=== PATIENT | female | born 1995 | race Caucasian/White ===

== ENCOUNTER 2020-10-25 16:40 | Emergency (ER) | payer OTHER ==
--- NOTE | 2020-10-25 16:47 | NUR ---
PT STATES THAT SHE IS REFUSING TO SIGN FRONT ADMITTING PAPERS AND WILL BE LEAVING FACILITY. ERMD AWARE
== END 2020-10-25 16:45 | disposition left against medical advice (07) ==
LOC: MED 16:40
DX: Z53.21 Procedure and treatment not carried out due to patient leaving prior to being seen by health care provider (principal)

== ENCOUNTER 2020-10-29 17:45 | Emergency (ER) | payer OTHER ==
[~2020-10-29] VITALS: Ht 170.2 cm; Wt 52.6 kg
[2020-10-29 17:54] VITALS: BP 104/70
[2020-10-29 18:40] LABS: APPEARANCE,URINE SL CLOUDY (CLEAR); BILIRUBIN,URINE NEGATIVE (NEGATIVE); BLOOD, URINE TRACE-I (NEGATIVE); COLOR,URINE YELLOW (YELLOW); LEUKOCYTE ESTERASE ,URINE 1+ (NEGATIVE); NITRITE, URINE NEGATIVE (NEGATIVE); PH,URINE 6.5 (5.0-9.0); UGLUCOSE NEGATIVE (NEGATIVE)
[2020-10-29 19:00] LABS: BASOPHILS % (AUTO) 0.5 % (0.0-2.0); EOSINOPHILS % (AUTO) 0.6 % (0.0-4.0); HEMATOCRIT 39.8 % (36-48); HEMOGLOBIN 13.5 g/dL (12.0-16.0); LYMPHOCYTES # (AUTO) 2.1 K/uL (2.5-16.5); LYMPHOCYTES % (AUTO) 33.2 % (20.5-51.1); MEAN CORPUSCULAR HEMOGLOBIN 32 pg (27-31); MEAN CORPUSCULAR HGB CONC 34 g/dL (33-37); MEAN CORPUSCULAR VOLUME 92.7 fL (80-94); MONOCYTES # (AUTO) 0.6 K/uL (0.8-1.0); MONOCYTES % (AUTO) 8.9 % (1.7-9.3); NEUTROPHILS # (AUTO) 3.5 K/uL (1.8-7.7); NEUTROPHILS % (AUTO) 56.8 % (42.2-75.2); PLATELET COUNT (AUTO) 215 K/uL (140-450); RED CELL DISTRIBUTION WIDTH 12.5 % (11.6-13.7); WHITE BLOOD COUNT (AUTO) 6.2 K/uL (4.8-10.8)
--- NOTE | 2020-10-29 19:06 | NUR ---
PT AMBULATED TO BED #6
[2020-10-29 19:15] LABS: ALBUMIN 4.2 g/dL (3.4-5.0); ANION GAP 10.7 (8-16); CARBON DIOXIDE 28.8 mmol/L (21-32); CREATININE 0.7 mg/dL (0.6-1.3); POTASSIUM 3.5 mmol/L (3.5-5.1); TOTAL BILIRUBIN 0.7 mg/dL (0.0-1.0)
--- NOTE | 2020-10-29 19:30 | NUR ---
TO BED 6 WITH C/O UTI. WAS SEEN AT [facility] [place] 4 DAYS AGO, GIVEN RX FOR ANTI BIOTICS. HAS NOW DEVELOPED BACK PAIN AND WAS SENT HERE FOR IVAB
[2020-10-29] MEDS ORDERED: CEPH-588 PO (19:43)
[2020-10-29] MEDS ORDERED: cefTRIAXone 1,000 MG VIAL ONE (20:00)
[2020-10-29 20:23] LABS: CALCIUM OXALATE CRYSTALS,UR 0-10 /HPF (None Seen); RBC,URINE 0-5 /HPF (0-5)
[2020-10-29 20:24] LABS: URINE AMORPHOUS URATE 1+ /HPF (None Seen)
[2020-10-29 21:09] VITALS: BP 104/70
--- NOTE | 2020-10-29 21:09 | NUR ---
Patient discharged with v/s stable. IV d/c'd, catheter intact. Written and verbal after care instructions given and explained. Patient verbalized understanding. Ambulatory with steady gait. All questions addressed prior to discharge. Advised to follow up with PMD.
== END 2020-10-29 21:09 | disposition home or self-care (01) ==
LOC: MED 17:45
DX: O23.41 Unspecified infection of urinary tract in pregnancy, first trimester (principal); Z3A.01 Less than 8 weeks gestation of pregnancy; Z88.0 Allergy status to penicillin; Z88.5 Allergy status to narcotic agent; Z88.6 Allergy status to analgesic agent; Z79.899 Other long term (current) drug therapy
CPT/HCPCS: 36415; 80053; 81001; 83605; 85025; 87040; 87086; 99283; J0696

== ENCOUNTER 2021-05-26 15:03 | Observation (INO) | payer OTHER, SELFPAY ==
[~2021-05-26] VITALS: Ht 170.2 cm; Wt 69.9 kg
[~2021-05-26 15:03] MED LIST: CEPH-588 PO
[2021-05-26] MEDS ORDERED: PNV91TAB8 PO (15:46)
[2021-05-26] MEDS ORDERED: LACT1CAP63 PO (15:46)
[2021-05-26] MEDS ORDERED: BETAMETH ACET/BETAMETH NA PH 30 MG/5 ML VIAL IM SCH (15:58)
[2021-05-26 16:40] VITALS: BP 120/74
== END 2021-05-26 17:50 | disposition home or self-care (01) ==
LOC: MLD 15:03
PROVIDERS: ADMIT Obstetrics & Gynecology; ATTEND Obstetrics & Gynecology
DX: O35.8XX0 Maternal care for other (suspected) fetal abnormality and damage, not applicable or unspecified (principal); Z20.822 Contact with and (suspected) exposure to COVID-19; O62.9 Abnormality of forces of labor, unspecified; Z3A.30 30 weeks gestation of pregnancy
CPT/HCPCS: 87426; 96372; G0378; J0702; 81000

== ENCOUNTER 2022-05-20 10:14 | Emergency (ER) | payer OTHER ==
[~2022-05-20] VITALS: Ht 170.2 cm; Wt 52.2 kg
[~2022-05-20 10:14] MED LIST changes: -CEPH-588 PO; +LACT1CAP63 PO; +PNV91TAB8 PO
[2022-05-20 10:19] VITALS: BP 98/70
--- NOTE | 2022-05-20 10:22 | NUR ---
PT AMB TO BED 11.
[2022-05-20] MEDS ORDERED: KETOROLAC 30 MG/ML VIAL IVP ONE (10:35)
[2022-05-20 11:09] LABS: EOSINOPHILS # (AUTO) 0.1 K/uL (0-0.4); EOSINOPHILS % (AUTO) 1.2 % (0.0-4.0); HEMATOCRIT 41.1 % (36-48); HEMOGLOBIN 13.7 g/dL (12.0-16.0); LYMPHOCYTES % (AUTO) 43.8 % (20.5-51.1); MEAN CORPUSCULAR HEMOGLOBIN 30 pg (27-31); MEAN CORPUSCULAR HGB CONC 33 g/dL (33-37); MEAN CORPUSCULAR VOLUME 90.9 fL (80-94); MONOCYTES # (AUTO) 0.3 K/uL (0.8-1.0); MONOCYTES % (AUTO) 5.6 % (1.7-9.3); NEUTROPHILS # (AUTO) 2.2 K/uL (1.8-7.7); NEUTROPHILS % (AUTO) 48.4 % (42.2-75.2); PLATELET COUNT (AUTO) 228 K/uL (140-450); RED BLOOD CELL COUNT(AUTO) 4.53 MIL/uL (4.20-5.40); RED CELL DISTRIBUTION WIDTH 12.9 % (11.6-13.7); WHITE BLOOD COUNT (AUTO) 4.5 K/uL (4.8-10.8)
[2022-05-20 11:29] LABS: PROTHROMBIN TIME 10.4 secs (10.8-13.4)
[2022-05-20 11:39] LABS: ALBUMIN 4.2 g/dL (3.4-5.0); ANION GAP 7.5 (8-16); CARBON DIOXIDE 31.5 mmol/L (21-32); CREATININE 0.8 mg/dL (0.6-1.3); TOTAL BILIRUBIN 0.9 mg/dL (0.0-1.0)
[2022-05-20] MEDS ORDERED: KETOROLAC 30 MG/ML VIAL ONE (11:47)
--- NOTE | 2022-05-20 12:26 | NUR ---
Female Surety Bond Agent accompanied female patient for Pelvic Exam.
[2022-05-20 12:42] VITALS: BP 109/67
--- NOTE | 2022-05-20 12:42 | NUR ---
Patient discharged with v/s stable. Written and verbal after care instructions FOR PELVIC PAIN AND ABNORMAL UTERINE BLEEDING given and explained. Patient verbalized understanding. Ambulatory with steady gait. All questions addressed prior to discharge. Advised to follow up with PMD.
--- NOTE | 2022-05-20 12:42 | NUR ---
IV removed, catheter intact and site benign. Applied folded 4x4 gauze and tape to stop bleeding.
[2022-05-20 13:19] LABS: APPEARANCE,URINE CLEAR (CLEAR); BILIRUBIN,URINE NEGATIVE (NEGATIVE); BLOOD, URINE 2+ (NEGATIVE); COLOR,URINE YELLOW (YELLOW); LEUKOCYTE ESTERASE ,URINE TRACE (NEGATIVE); NITRITE, URINE NEGATIVE (NEGATIVE); UGLUCOSE NEGATIVE (NEGATIVE)
[2022-05-20 13:35] LABS: RBC,URINE 11-20 (MOD) /HPF (0-5); WBC,URINE 0-5 /HPF (0-5)
--- NOTE | 2022-05-20 14:10 | NUR ---
Pt arrived to ED from []. DNR in chart dated. Pt wishes [g ED.DNR].Patient discharged with v/s stable. Written and verbal after care instructions given and explained. Patient verbalized understanding. Ambulatory with steady gait. All questions addressed prior to discharge. Advised to follow up with PMD.
== END 2022-05-20 12:42 | disposition home or self-care (01) ==
LOC: MED 10:14
DX: N93.9 Abnormal uterine and vaginal bleeding, unspecified (principal); R10.2 Pelvic and perineal pain; Z79.899 Other long term (current) drug therapy; Z88.0 Allergy status to penicillin; Z88.5 Allergy status to narcotic agent; Z88.6 Allergy status to analgesic agent; Z91.040 Latex allergy status; Z91.048 Other nonmedicinal substance allergy status
CPT/HCPCS: 36415; 76856; 80053; 81001; 81025; 84702; 85025; 85610; 85730; 96374; 99285; J1885; Q0092

== ENCOUNTER 2023-05-06 09:47 | Emergency (ER) | payer OTHER ==
[~2023-05-06] VITALS: Ht 170.2 cm; Wt 55.8 kg
[2023-05-06 10:06] VITALS: BP 100/68; PULSE 82; RESP 18; TEMP 97.6; O2SAT 100
[2023-05-06 10:58] VITALS: BP 104/68; PULSE 89; TEMP 98.5; O2SAT 99
[2023-05-06 11:03] LABS: ANION GAP 13.8 (8-16); CALCIUM 8.7 mg/dL (8.5-10.1); CARBON DIOXIDE 25.6 mmol/L (21-32); CREATININE 0.6 mg/dL (0.6-1.3); POTASSIUM 3.4 mmol/L (3.5-5.1)
[2023-05-06 11:08] LABS: BASOPHILS % (AUTO) 0.1 % (0.0-2.0); EOSINOPHILS % (AUTO) 0.1 % (0.0-4.0); HEMOGLOBIN 14.6 g/dL (12.0-16.0); LYMPHOCYTES # (AUTO) 0.6 K/uL (2.5-16.5); LYMPHOCYTES % (AUTO) 10.3 % (20.5-51.1); MEAN CORPUSCULAR HEMOGLOBIN 32 pg (27-31); MEAN CORPUSCULAR HGB CONC 36 g/dL (33-37); MEAN CORPUSCULAR VOLUME 88.8 fL (80-94); MONOCYTES # (AUTO) 0.2 K/uL (0.8-1.0); MONOCYTES % (AUTO) 3.7 % (1.7-9.3); NEUTROPHILS # (AUTO) 5.4 K/uL (1.8-7.7); NEUTROPHILS % (AUTO) 85.8 % (42.2-75.2); PLATELET COUNT (AUTO) 192 K/uL (140-450); RED BLOOD CELL COUNT(AUTO) 4.62 MIL/uL (4.20-5.40); RED CELL DISTRIBUTION WIDTH 12.8 % (11.6-13.7); WHITE BLOOD COUNT (AUTO) 6.3 K/uL (4.8-10.8)
[2023-05-06 11:09] LABS: ALBUMIN 3.5 g/dL (3.4-5.0); BILIRUBIN,DIRECT 0.2 mg/dL (0.0-0.3); TOTAL PROTEIN, SERUM 8.3 g/dL (6.4-8.2)
[2023-05-06] MEDS ORDERED: OMEP40EC23 PO (12:06)
[2023-05-06] MEDS ORDERED: DOXY1TCP PO (12:06)
== END 2023-05-06 12:25 | disposition home or self-care (01) ==
LOC: MED 09:47
DX: O26.892 Other specified pregnancy related conditions, second trimester (principal); O21.9 Vomiting of pregnancy, unspecified; Z3A.14 14 weeks gestation of pregnancy; Z79.899 Other long term (current) drug therapy; Z88.8 Allergy status to other drugs, medicaments and biological substances; Z79.1 Long term (current) use of non-steroidal anti-inflammatories (NSAID); Z88.0 Allergy status to penicillin; Z91.040 Latex allergy status
CPT/HCPCS: 36415; 80048; 80076; 81002; 81025; 83690; 85025; 99283

== ENCOUNTER 2023-08-26 15:10 | Observation (INO) | payer OTHER ==
[~2023-08-26] VITALS: Ht 170.2 cm; Wt 66.2 kg
[~2023-08-26 15:10] MED LIST changes: +DOXY1TCP PO; +OMEP40EC23 PO
[2023-08-26 15:59] VITALS: BP 117/67; PULSE 80; RESP 18; TEMP 98.4
[2023-08-26 16:04] LABS: BASOPHILS % (AUTO) 0.3 % (0.0-2.0); EOSINOPHILS % (AUTO) 0.3 % (0.0-4.0); HEMATOCRIT 34.4 % (36-48); HEMOGLOBIN 11.9 g/dL (12.0-16.0); LYMPHOCYTES # (AUTO) 1.7 K/uL (2.5-16.5); LYMPHOCYTES % (AUTO) 25.9 % (20.5-51.1); MEAN CORPUSCULAR HEMOGLOBIN 31 pg (27-31); MEAN CORPUSCULAR HGB CONC 35 g/dL (33-37); MEAN CORPUSCULAR VOLUME 88.3 fL (80-94); MONOCYTES # (AUTO) 0.5 K/uL (0.8-1.0); MONOCYTES % (AUTO) 7.3 % (1.7-9.3); NEUTROPHILS # (AUTO) 4.4 K/uL (1.8-7.7); NEUTROPHILS % (AUTO) 66.2 % (42.2-75.2); PLATELET COUNT (AUTO) 183 K/uL (140-450); RED CELL DISTRIBUTION WIDTH 13.1 % (11.6-13.7); WHITE BLOOD COUNT (AUTO) 6.6 K/uL (4.8-10.8)
[2023-08-26 16:17] LABS: BILIRUBIN,URINE NEGATIVE (NEGATIVE); BLOOD, URINE NEGATIVE (NEGATIVE); COLOR,URINE YELLOW (YELLOW); LEUKOCYTE ESTERASE ,URINE TRACE (NEGATIVE); NITRITE, URINE NEGATIVE (NEGATIVE); PH,URINE 6.5 (5.0-9.0); PROTEIN,URINE NEGATIVE (NEGATIVE); UGLUCOSE NEGATIVE (NEGATIVE); UROBILINOGEN,URINE 0.2 EU/dL (0.2 - 1)
[2023-08-26 16:19] LABS: APPEARANCE,URINE SLIGHTLY HAZY (CLEAR)
[2023-08-26 16:20] LABS: CALCIUM 7.8 mg/dL (8.5-10.1); CREATININE 0.6 mg/dL (0.6-1.3); POTASSIUM 3.5 mmol/L (3.5-5.1); TOTAL BILIRUBIN 0.3 mg/dL (0.0-1.0); TOTAL PROTEIN, SERUM 6.6 g/dL (6.4-8.2); URIC ACID 4.8 mg/dL (2.6-7.2)
[2023-08-26 16:26] LABS: BACTERIA,URINE 1+ /HPF (None Seen); MUCUS,URINE None Seen /LPF (None Seen); RBC,URINE 0 /HPF (0-5); SQUAMOUS EPITHELIAL CELL,UR 4-10 (MOD) /LPF (0-3 (FEW)); WBC,URINE 0-5 /HPF (0-5)
[2023-08-26 16:27] LABS: INR 0.93 (0.8-1.2); PROTHROMBIN TIME 9.8 secs (10.8-13.4)
[2023-08-26 17:50] LABS: ANION GAP 14.3 (8-16); CARBON DIOXIDE 24.2 mmol/L (21-32)
[2023-08-26 17:59] LABS: URINE TOTAL PROTEIN 6.6 mg/dL (0-12); URINE TPRO CREAT RATIO 0.1 (0-0.20)
[2023-08-26] MEDS ORDERED: SILVER SULFADIAZINE 1% 50 GM JAR TP SCH (18:11)
[2023-08-26] MEDS: NACL 0.9% 500 ML IV SCH (18:17)
[2023-08-26] MEDS: diphenhydrAMINE 50 MG/ML VIAL IVP SCH (18:22)
[2023-08-26] MEDS: APAP/BUTAL/CAFF 325/50/40 MG 1 TAB PO SCH (18:53)
[2023-08-26] MEDS ORDERED: NITR100C7 PO (20:17)
== END 2023-08-26 20:00 | disposition home or self-care (01) ==
LOC: MLD 15:10
PROVIDERS: ADMIT Obstetrics & Gynecology; ATTEND Obstetrics & Gynecology
DX: O99.353 Diseases of the nervous system complicating pregnancy, third trimester (principal); G43.909 Migraine, unspecified, not intractable, without status migrainosus; O34.83 Maternal care for other abnormalities of pelvic organs, third trimester; N80.9 Endometriosis, unspecified; O99.283 Endocrine, nutritional and metabolic diseases complicating pregnancy, third trimester; E28.2 Polycystic ovarian syndrome; Z3A.28 28 weeks gestation of pregnancy; Z88.0 Allergy status to penicillin; Z79.899 Other long term (current) drug therapy; Z87.59 Personal history of other complications of pregnancy, childbirth and the puerperium
CPT/HCPCS: 36415; 80053; 81001; 82570; 84550; 85025; 85384; 85610; 85730; 96365; 96375; G0378; G0379; J0696; J1200; J7060

== ENCOUNTER 2023-10-25 05:18 | Inpatient (IN) | payer OTHER ==
[~2023-10-25] VITALS: Ht 170.2 cm; Wt 69.9 kg
[~2023-10-25 05:18] MED LIST changes: +NITR100C7 PO
[2023-10-25 06:06] LABS: BASOPHILS % (AUTO) 0.4 % (0.0-2.0); EOSINOPHILS % (AUTO) 0.5 % (0.0-4.0); HEMATOCRIT 34.3 % (36-48); HEMOGLOBIN 11.8 g/dL (12.0-16.0); LYMPHOCYTES # (AUTO) 1.9 K/uL (2.5-16.5); LYMPHOCYTES % (AUTO) 37.2 % (20.5-51.1); MEAN CORPUSCULAR HEMOGLOBIN 31 pg (27-31); MEAN CORPUSCULAR HGB CONC 35 g/dL (33-37); MEAN CORPUSCULAR VOLUME 89.8 fL (80-94); MONOCYTES # (AUTO) 0.5 K/uL (0.8-1.0); MONOCYTES % (AUTO) 9.9 % (1.7-9.3); NEUTROPHILS # (AUTO) 2.7 K/uL (1.8-7.7); PLATELET COUNT (AUTO) 160 K/uL (140-450); RED BLOOD CELL COUNT(AUTO) 3.83 MIL/uL (4.20-5.40); RED CELL DISTRIBUTION WIDTH 14.1 % (11.6-13.7); WHITE BLOOD COUNT (AUTO) 5.1 K/uL (4.8-10.8)
[2023-10-25 06:17] LABS: APPEARANCE,URINE CLEAR (CLEAR); BILIRUBIN,URINE NEGATIVE (NEGATIVE); BLOOD, URINE NEGATIVE (NEGATIVE); COLOR,URINE YELLOW (YELLOW); LEUKOCYTE ESTERASE ,URINE 1+ (NEGATIVE); NITRITE, URINE NEGATIVE (NEGATIVE); PROTEIN,URINE NEGATIVE (NEGATIVE); UGLUCOSE NEGATIVE (NEGATIVE); UROBILINOGEN,URINE 0.2 EU/dL (0.2 - 1)
[2023-10-25 06:30] VITALS: BP 112/62; PULSE 71; RESP 18; TEMP 98.2
[2023-10-25 06:30] LABS: ALBUMIN 2.8 g/dL (3.4-5.0); ANION GAP 12.8 (8-16); CALCIUM 8.9 mg/dL (8.5-10.1); CARBON DIOXIDE 26.3 mmol/L (21-32); CREATININE 0.8 mg/dL (0.6-1.3); POTASSIUM 3.1 mmol/L (3.5-5.1); TOTAL BILIRUBIN 0.4 mg/dL (0.0-1.0); TOTAL PROTEIN, SERUM 6.4 g/dL (6.4-8.2)
[2023-10-25 06:32] LABS: INR 0.9 (0.8-1.2); PARTIAL THROMBOPLASTIN TIME 23.8 secs (22-35.6); PROTHROMBIN TIME 9.6 secs (10.8-13.4)
[2023-10-25 06:33] LABS: AMPHETAMINE, URINE NEGATIVE ng/ml (NEG <=1000); BARBITURATE, URINE NEGATIVE ng/ml (NEG <=200); BENZODIAZEPINE, URINE NEGATIVE ng/mL (NEG <=200); CANNABINOID, URINE NEGATIVE ng/mL (NEG <=50); COCAINE, URINE NEGATIVE ng/mL (NEG <=300); OPIATE, URINE NEGATIVE ng/mL (NEG <=2000); PHENCYCLIDINE SCREEN,URINE NEGATIVE ng/mL (NEG <=25)
[2023-10-25 06:39] LABS: BACTERIA,URINE 2+ /HPF (None Seen); MUCUS,URINE 1+ /LPF (None Seen); RBC,URINE 0-5 /HPF (0-5); TRICHOMONAS,URINE None Seen /HPF (None Seen); YEAST,URINE None Seen /HPF (None Seen)
[2023-10-25] MEDS: LACTATED RINGERS 1,000 ML IV SCH (06:39)
[2023-10-25] MEDS ORDERED: CLINDAMYCIN 900 MG in DEXTROSE 5% 100 ML IV SCH (07:00)
[2023-10-25] MEDS ORDERED: MORPHINE PRES FREE 10 MG/10 ML AMP IV ONE (07:30)
[2023-10-25] MEDS: CLINDAMYCIN 900 MG/6 ML VIAL IV ONE (07:30)
[2023-10-25] MEDS ORDERED: METHYLERGONOVINE 0.2 MG/ML AMP IM PRN (07:40)
[2023-10-25] MEDS ORDERED: MEASLES, MUMPS, AND RUBELLA 1 VIAL SQVAC ONE (07:40)
[2023-10-25] MEDS ORDERED: OXYTOCIN/0.9 % SODIUM CHLORIDE 500 ML IV ONE (08:25)
[2023-10-25] MEDS ORDERED: diphenhydrAMINE 50 MG/ML VIAL IVP PRN (08:40)
[2023-10-25] MEDS ORDERED: NALOXONE 0.4 MG/ML VIAL IVP PRN ×3 (08:40)
--- NOTE | 2023-10-25 09:15 | NUR ---
PATIENT HAS BEEN SCREENED AND CATEGORIZED LOW NUTRITION RISK. PATIENT WILL BE SEEN WITHIN 7 DAYS OF ADMISSION. 11/01/[address]
[2023-10-25] MEDS: KETOROLAC 30 MG/ML VIAL IM/IVP SCH (12:09)
[2023-10-25] MEDS: ONDANSETRON 4 MG/2 ML VIAL IVP PRN (13:49)
[2023-10-25] MEDS: KETOROLAC 30 MG/ML VIAL IVP PRN (17:41)
[2023-10-25] MEDS ORDERED: oxyCODONE/APAP 5/325 MG 1 TAB TAB PO PRN (18:00)
[2023-10-25] MEDS: oxyCODONE/APAP 5/325 MG 1 TAB TAB PO PRN (18:46)
[2023-10-25] MEDS: OXYTOCIN/0.9 % SODIUM CHLORIDE 500 ML IV SCH (22:05)
[2023-10-25] MEDS: oxyCODONE/APAP 5/325 MG 1 TAB TAB PO SCH (23:30)
[2023-10-26] MEDS ORDERED: TEMAZEPAM 15 MG CAP PO PRN (02:10)
[2023-10-26 06:35] LABS: BASOPHILS % (AUTO) 0.3 % (0.0-2.0); EOSINOPHILS # (AUTO) 0.1 K/uL (0-0.4); EOSINOPHILS % (AUTO) 0.8 % (0.0-4.0); HEMATOCRIT 23.3 % (36-48); HEMOGLOBIN 8.1 g/dL (12.0-16.0); LYMPHOCYTES # (AUTO) 1.9 K/uL (2.5-16.5); LYMPHOCYTES % (AUTO) 22.4 % (20.5-51.1); MEAN CORPUSCULAR HEMOGLOBIN 31 pg (27-31); MEAN CORPUSCULAR HGB CONC 35 g/dL (33-37); MEAN CORPUSCULAR VOLUME 89.5 fL (80-94); MONOCYTES # (AUTO) 0.8 K/uL (0.8-1.0); MONOCYTES % (AUTO) 8.8 % (1.7-9.3); NEUTROPHILS # (AUTO) 5.8 K/uL (1.8-7.7); NEUTROPHILS % (AUTO) 67.7 % (42.2-75.2); PLATELET COUNT (AUTO) 136 K/uL (140-450); RED CELL DISTRIBUTION WIDTH 13.7 % (11.6-13.7); WHITE BLOOD COUNT (AUTO) 8.6 K/uL (4.8-10.8)
[2023-10-26] MEDS ORDERED: oxyCODONE 5 MG TAB PO PRN (08:15)
[2023-10-26] MEDS: bisacodyL 5 MG TABEC PO PRN (08:51)
[2023-10-26] MEDS: IBUPROFEN 800 MG TAB PO SCH (09:00)
[2023-10-26] MEDS: MORPHINE SULFATE 4 MG/ML SYR IVP SCH (10:10)
[2023-10-26] MEDS: SIMETHICONE 80 MG TAB.CHEW PO PRN (17:17)
[2023-10-26] MEDS ORDERED: CAMERA MC ONE (20:09)
[2023-10-26] MEDS ORDERED: MEDS-TO-BEDS MC SCH (21:00)
[2023-10-27] MEDS: IBUPROFEN 800 MG TAB PO PRN (09:08)
== END 2023-10-27 14:00 | disposition home or self-care (01) | DRG 540 ==
LOC: MLD 05:18 → MFCC 09:35
PROVIDERS: ADMIT Obstetrics & Gynecology; ATTEND Obstetrics & Gynecology
PROC: 30233S1 Transfusion of Nonautologous Globulin into Peripheral Vein, Percutaneous Approach (ICD-10-PCS; 2023-10-25)
PROC: 10D00Z1 Extraction of Products of Conception, Low, Open Approach (ICD-10-PCS; principal; 2023-10-25 07:30)
DX: O26.643 Intrahepatic cholestasis of pregnancy, third trimester (principal); D62 Acute posthemorrhagic anemia; K76.89 Other specified diseases of liver; Z37.0 Single live birth; Z3A.37 37 weeks gestation of pregnancy
CPT/HCPCS: 36415; 80053; 80305; 81001; 85025; 85610; 85730; 86592; 86762; 86850; 86886; 86900; 86901; 87081; 87086; 87340; J1885; J2270; J2405; J2590; J2790; J3490; J7120